=== PATIENT | male | born 1950 ===

== ENCOUNTER → 2019-12-10 09:24 | Outpatient (CLI) | payer OTHER, SELFPAY ==
--- NOTE | 2019-12-10 07:41 | US_ITS ---
STUDY: RENAL ULTRASOUND - COMPLETE REASON FOR EXAM: Male, 69 years old. Chronic kidney disease. TECHNIQUE: Ultrasound evaluation of the kidneys was performed with real-time and static [place]-scale imaging. COMPARISON: None available. FINDINGS: RIGHT KIDNEY: Normal location of the right kidney, which is normal in size. The right kidney measures 11.7 cm. There is a normal cortex of the right kidney. There is no right renal mass or cyst. There are no right renal calculi. There is no right hydronephrosis. DISTAL RIGHT URETER: There is non-visualization of the distal right ureter. There is no demonstrated right ureterovesical junction calculus. There is a visualized right ureteral jet. LEFT KIDNEY: Normal location of the left kidney, which is normal in size. The left kidney measures 12.2 cm. There is a normal cortex of the left kidney. There is no left renal mass or cyst. There are no left renal calculi. There is no left hydronephrosis. DISTAL LEFT URETER: There is non-visualization of the distal left ureter. There is no demonstrated left ureterovesical junction calculus. There is a visualized left ureteral jet. BLADDER: The urinary bladder is partially distended and appears unremarkable. PROSTATE: Mildly enlarged, measuring 5.0 x 4.5 x 3.8 cm. US/Kidney and Bladder IMPRESSION: Normal ultrasound of the kidneys and urinary bladder. Mildly enlarged prostate Electronically Signed: Brenden Hagan, at 17:49 EDT Tel , Service support ,
[2019-12-10 10:09] LABS: Urine Sodium 72 mmol/L (Not Establ.)
[2019-12-10 10:59] LABS: Osmolality, Urine 661 mOsm/KG
[2019-12-10 12:11] LABS: Hemoglobin A1c 6.1 % (3.8-5.6)
[2019-12-12 16:08] LABS: PROEL- A/G Ratio 1.6 (0.7-1.7); PROEL- Albumin 4.2 g/dL (2.9-4.4); PROEL- Alpha-1 Globulin 0.2 g/dL (0.0-0.4); PROEL- Alpha-2 Globulin 0.8 g/dL (0.4-1.0); PROEL- Beta Globulin 0.9 g/dL (0.7-1.3); PROEL- Gamma Globulin 0.9 g/dL (0.4-1.8); PROEL- Globulin, Total 2.7 g/dL (2.2-3.9); PROEL- TOTAL PROTEIN 6.9 g/dL (6.0-8.5)
== END ==
LOC: US 06-11 00:16
PROVIDERS: Visit Provider Internal Medicine Nephrology
DX: E11.22 Type 2 diabetes mellitus with diabetic chronic kidney disease (principal); N18.30 Chronic kidney disease, stage 3 unspecified
CPT/HCPCS: 36415; 76770; 83036; 83935; 84165; 84300